=== PATIENT | female | born 1995 | race American Indian/Alaskan Native ===

== ENCOUNTER 2016-09-16 21:34 | Emergency (ER) | payer SELFPAY ==
[2016-09-16 22:00] VITALS: BP 110/63
== END 2016-09-16 23:00 | disposition left against medical advice (07) ==
LOC: ED 21:34
DX: H93.12 Tinnitus, left ear (principal); Z53.21 Procedure and treatment not carried out due to patient leaving prior to being seen by health care provider

== ENCOUNTER 2016-11-05 15:04 | Emergency (ER) | payer OTHER ==
[2016-11-05 16:03] VITALS: BP 130/84
--- NOTE | 2016-11-05 16:14 | Emergency Department Report ---
ED Lower Extremity HPI - General Chief Complaint: Extremity Injury, Lower Stated Complaint: FALL/RT KNEE PAIN Time Seen by Provider: 11/05/16 16:12 Source: patient, family Mode of arrival: Wheelchair Limitations: No Limitations - History of Present Illness MD Complaint: knee injury (b; r more than l) -: Sudden (sp fall at [facility]) Injury: Knee: Right, Left (r painful; l pt says not bothering her. sp glf on both knees. ) Type of Injury: blunt Place: other Severity: moderate Severity scale (0 -10): 4 Improves With: nothing Worsens With: movement Context: fall Associated Symptoms: swelling, ambulatory - Related Data Previous Rx's Medication Instructions Recorded Last Taken Type traMADol [Ultram] 50 mg PO Q6HR PRN #10 tablet 11/05/16 Unknown Rx Allergies Allergy/AdvReac Type Severity Reaction Status Date / Time adhesive tape AdvReac Rash Verified 11/05/16 15:55 chlorhexidine AdvReac Rash Verified 11/05/16 15:56 iodine AdvReac Rash Verified 11/05/16 15:55 ED Review of Systems ROS: Stated complaint: FALL/RT KNEE PAIN Other details as noted in HPI Comment: All other systems reviewed and negative Constitutional: no symptoms reported, see HPI. denies: chills Eyes: as per HPI. denies: eye pain ENT: as per HPI. denies: ear pain, throat pain Respiratory: no symptoms reported, see HPI. denies: cough, orthopnea Cardiovascular: as per HPI. denies: chest pain, palpitations, dyspnea on exertion, orthopnea Endocrine: no symptoms reported, see HPI. denies: excessive sweating, flushing , intolerance to cold, intolerance to heat Gastrointestinal: as per HPI. denies: abdominal pain, nausea, vomiting Genitourinary: as per HPI. denies: urgency, dysuria Musculoskeletal: as per HPI, other (knee pain). denies: back pain, joint swelling, arthralgia, myalgia Skin: as per HPI. denies: rash, lesions Neurological: as per HPI. denies: headache, weakness Psychiatric: as per HPI. denies: anxiety, depression Hematological/Lymphatic: as per HPI. denies: easy bleeding ED Past Medical Hx - Past Medical History Previous Medical History?: No Hx Asthma: Yes Additional medical history: NEUROMYELITIS OPTICA - Surgical History Past Surgical History?: Yes Additional Surgical History: tubes in ears. TONSILLECTOMY. - Family History Family history: no significant - Social History Smoking Status: Current Every Day Smoker Substance Use Type: Marijuana - Medications Home Medications: Home Medications Medication Instructions Recorded Confirmed Last Taken Type traMADol [Ultram] 50 mg PO Q6HR PRN #10 tablet 11/05/16 Unknown Rx ED Physical Exam - General Limitations: No Limitations General appearance: alert, in no apparent distress - Head Head exam: Present: atraumatic - Eye Eye exam: Present: normal appearance - ENT ENT exam: Present: mucous membranes moist - Neck Neck exam: Present: normal inspection. Absent: tenderness, meningismus - Respiratory Respiratory exam: Present: normal lung sounds bilaterally. Absent: respiratory distress, wheezes, rales, rhonchi, stridor - Cardiovascular Cardiovascular Exam: Present: regular rate, normal rhythm - GI/Abdominal GI/Abdominal exam: Present: soft. Absent: distended, tenderness, guarding - Rectal Rectal exam: Present: deferred - Extremities Exam Extremities exam: Present: full ROM, tenderness, normal capillary refill. Absent: normal inspection, pedal edema - Expanded Lower Extremity Exam Right Hip exam: Present: normal inspection Upper Leg exam: Present: normal inspection Knee exam: Present: full ROM (but w pain), tenderness (diffuse), swelling (mild) , ecchymosis (mild), full knee extension. Absent: abrasion, laceration, deformity, crepidus, dislocation, erythema, effusion, pain w/ pronation/ supination, posterior draw sign, pain/laxity with valgus, pain/laxity with varus Lower Leg exam: Present: normal inspection Ankle exam: Present: normal inspection Foot/Toe exam: Present: normal inspection Neuro vascular tendon exam: Present: no vascular compromise Gait: Positive: unable to bear weight (wo severe pain) - Back Exam Back exam: Present: normal inspection, full ROM - Neurological Exam Neurological exam: Present: alert, altered, oriented X3 - Psychiatric Psychiatric exam: Present: normal affect, normal mood - Skin Skin exam: Present: warm, dry, intact, normal color ED Course Vital Signs 11/05/16 16:00 Temperature 98.4 F Pulse Rate 70 Respiratory 17 Rate Blood Pressure 130/84 O2 Sat by Pulse 100 Oximetry - Reevaluation(s) Reevaluation #1: 11/05/16 to er sp glf at [facility] landed on both knees here w r knee pain mild swelling and bruising no effusion good peripheral pulses can ambulate but w pain ankle and hip wnl works for [employer] at [facility] she said they will get with her in a day or so no other injury noted xray neg medicated immob and crutches home w ortho follow up immob and crutches pt and updated on plan of care work not provided ED Lower Extremity MDM - Radiology Data Radiology results: report reviewed (per rad nap), image reviewed no fx tib/fib official rad report requested immob and crutches ortho referral - Medical Decision Making immob and crutches sp glf w knee contusion concern for soft tissue injury - Differential Diagnosis ro fx or meniscus injury Critical care attestation.: If time is entered above; I have spent that time in minutes in the direct care of this critically ill patient, excluding procedure time. ED Disposition Clinical Impression: Contusion, knee, Fall Disposition: - TO HOME OR SELFCARE Is pt being admited?: No Does the pt Need Aspirin: No Condition: Stable Instructions: Knee Pain (ED) Additional Instructions: ice rest elevated motrin or tylenol for mild pain ultram for severe pain immobilizer crutches follow up ortho -see referral Prescriptions: traMADol [Ultram] 50 mg PO Q6HR PRN #10 tablet PRN Reason: Pain Referrals: PRIMARY MD CELESTE [Primary Care Provider] - 3-5 Days MILANA MONIQUE MD [Staff Physician] - 3-5 Days Forms: Work/School Release Form(ED) Time of Disposition: 17:49
[2016-11-05] MEDS ORDERED: NORCO 7.5/325 PO ONE (17:48)
[2016-11-05] MEDS ORDERED: TORADOL IM ONE (17:48)
--- NOTE | 2016-11-05 17:57 | XRay Report ---
FINAL REPORT EXAM: XR KNEE 3V RT HISTORY: FALL / RIGHT KNEE PAIN / INJURY TECHNIQUE: 3 views of right knee. PRIORS: None. FINDINGS: Joint spaces maintained. Subtle, oblong lucency in the distal femoral metadiaphysis may represent nonossifying fibroma, intraosseous cyst or focus of fibrous dysplasia, but nonspecific. No apparent fracture or dislocation. Soft tissues grossly unremarkable. IMPRESSION: 1. No acute osseous abnormality.
== END 2016-11-05 18:40 | disposition home or self-care (01) ==
LOC: ED 15:04
DX: S80.01XA Contusion of right knee, initial encounter (principal); J45.909 Unspecified asthma, uncomplicated; F17.200 Nicotine dependence, unspecified, uncomplicated; W19.XXXA Unspecified fall, initial encounter; Y93.89 Activity, other specified; Y99.8 Other external cause status; Y92.89 Other specified places as the place of occurrence of the external cause; Z88.8 Allergy status to other drugs, medicaments and biological substances
CPT/HCPCS: 29505; 73562; 96372; 99284; J1885